=== PATIENT | female | born 1975 | race Caucasian/White ===

== ENCOUNTER 2019-12-14 16:44 | Inpatient (IN) | payer MEDICAID ==
[~2019-12-14] VITALS: Ht 154.9 cm; Wt 131.8 kg
[~2019-12-14 16:44] MED LIST: ALBU2.5V13 NEB; DOCU283E2 RC; FOLI0.4T14 PO; HYDR-4383 PO; LORA-268 PO; MYC15CR TOP; ONDA4AMP IVP; OXCA300T16 PO; PANT-47 PO; POLY119P2 PO; PROP10TA10 PO; QUET300T19 PO; RIFA550T PO; SCOP1PAT11 TOP; SODIUM CHLORIDE IV; VANCOMYCIN IV
[2019-12-14 19:23] LABS: BASOPHILS % (AUTO) 0.4 % (0-1); EOSINOPHILS # (AUTO) 0.1 X10'3 (0-0.9); EOSINOPHILS % (AUTO) 1.5 % (0-6); HEMOGLOBIN 8.2 g/dl (12.0-16.0); LYMPHOCYTES % (AUTO) 13.2 % (21-51); MEAN CORPUSCULAR HEMOGLOBIN 32.1 PG (27.0-31.0); MEAN CORPUSCULAR HGB CONC 32.8 g/dL (33.0-36.5); MEAN PLATELET VOLUME 7.7 FL (7.4-10.4); MONOCYTES # (AUTO) 0.6 X10'3 (0-0.9); MONOCYTES % (AUTO) 8.2 % (2-12); NEUTROPHILS % (AUTO) 76.7 % (42-75); PLATELET COUNT 158 X10'3 (140-440); RED BLOOD COUNT 2.55 X10'6 (4.20-5.60); RED CELL DISTRIBUTION WIDTH 17.6 % (11.5-14.5); WHITE BLOOD COUNT 7.9 X10'3 (4.5-11.0)
[2019-12-14 19:35] LABS: ALANINE AMINOTRANSFERASE 11 U/L (12-78); ALBUMIN 2.9 G/DL (3.4-5.0); ALKALINE PHOSPHATASE 100 IU/L (46-116); ANION GAP 9 (8-16); CHLORIDE 98 MMOL/L (99-107); CREATININE 1.81 MG/DL (0.40-0.90); POTASSIUM 3.6 MMOL/L (3.5-5.1); SODIUM 135 MMOL/L (135-145); TOTAL CARBON DIOXIDE 28.5 MMOL/L (24-32); eGFR 30 ML/MIN
[2019-12-14 19:37] LABS: ALBUMIN/GLOBULIN RATIO 0.4 (1.1-1.5); ASPARTATE AMINO TRANSFERASE 33 U/L (10-37); BILIRUBIN,TOTAL 1.5 MG/DL (0.1-1.0); BLOOD UREA NITROGEN 51 MG/DL (7-18); BUN/CREATININE RATIO 28.2 (6.6-38.0); CALCIUM 9.1 MG/DL (8.5-10.1); GLUCOSE 102 MG/DL (70-104); TOTAL PROTEIN 9.6 G/DL (6.4-8.2)
[2019-12-14] MEDS ORDERED: potassium Cl 20 mEq SR tablet PO PRN ×2 (20:55)
[2019-12-14] MEDS ORDERED: acetaminophen 325mg tablet PO PRN (20:55)
[2019-12-14] MEDS ORDERED: potassium CL 10mEq/100ml bag 100 ML IV PRN ×2 (20:55)
[2019-12-14] MEDS ORDERED: magnesium 4gm in 100ml NS 100 ML IV PRN (20:55)
[2019-12-14] MEDS ORDERED: ipratropium/albuterol 3ml nebule NEB PRN (20:55)
[2019-12-14] MEDS ORDERED: mag hydrox/Alum hydrox/simeth 30ml oral suspension PO PRN (20:55)
[2019-12-14] MEDS ORDERED: magnesium 2GM in 50ml NS 50 ML IV PRN (20:55)
[2019-12-14] MEDS ORDERED: docusate sod 100mg capsule PO PRN (20:55)
[2019-12-14 21:09] LABS: PARTIAL THROMBOPLASTIN TIME 34 SECONDS (22-32)
--- NOTE | 2019-12-14 22:16 | NUR ---
Patient in room ED 9. I have received report from Juana VIDAL and had the opportunity to ask questions and assume patient care.
[2019-12-14 22:25] VITALS: BP 113/44
--- NOTE | 2019-12-14 22:25 | NUR ---
Patient arrived from ER. Two RN skin checked preformed. Vital signs obtained- 113/44 --102 HR-- 91% on 2L of O2-- 20 RR. Patient alert and oriented. Will continue to monitor closely.
[2019-12-14] MEDS: ondansetron/PF 4mg/2ml inj IV PRN (22:42)
[2019-12-15] VITALS (10 sets, daily range): BP systolic 93–138; BP diastolic 36–99
[2019-12-15] MEDS ORDERED: temazepam 15mg capsule PO PRN (00:05)
[2019-12-15] MEDS ORDERED: proMETHazine 25mg rectal suppository RC PRN (00:10)
[2019-12-15] MEDS: proMETHazine 25mg tablet PO PRN ×3 (00:44→22:19)
[2019-12-15] MEDS ORDERED: LORazepam 0.5 MG tablet PO PRN (04:40)
[2019-12-15] MEDS ORDERED: ipratropium/albuterol 3ml nebule NEB PRN (04:40)
[2019-12-15] MEDS: levoFLOXACIN-Levaquin 500mg/D5 100 ML IV SCH (05:03)
[2019-12-15 05:30] LABS: BASOPHILS % (AUTO) 0.7 % (0-1); EOSINOPHILS # (AUTO) 0.1 X10'3 (0-0.9); EOSINOPHILS % (AUTO) 1.4 % (0-6); HEMATOCRIT 24.7 % (35.0-45.0); HEMOGLOBIN 8.2 g/dl (12.0-16.0); LYMPHOCYTES # (AUTO) 1.3 X10'3 (1.1-4.8); MEAN CORPUSCULAR HEMOGLOBIN 32.7 PG (27.0-31.0); MEAN PLATELET VOLUME 7.7 FL (7.4-10.4); MONOCYTES # (AUTO) 0.8 X10'3 (0-0.9); MONOCYTES % (AUTO) 10.2 % (2-12); NEUTROPHILS # (AUTO) 5.1 X10'3 (1.8-7.7); NEUTROPHILS % (AUTO) 69.7 % (42-75); PLATELET COUNT 149 X10'3 (140-440); RED CELL DISTRIBUTION WIDTH 16.9 % (11.5-14.5); WHITE BLOOD COUNT 7.4 X10'3 (4.5-11.0)
[2019-12-15 05:57] LABS: ALANINE AMINOTRANSFERASE 13 U/L (12-78); ALBUMIN 2.9 G/DL (3.4-5.0); ALKALINE PHOSPHATASE 79 IU/L (46-116); ANION GAP 8 (8-16); CHLORIDE 98 MMOL/L (99-107); CREATININE 1.91 MG/DL (0.40-0.90); MAGNESIUM 1.9 MG/DL (1.5-2.4); POTASSIUM 3.5 MMOL/L (3.5-5.1); SODIUM 135 MMOL/L (135-145); eGFR 28 ML/MIN
[2019-12-15 06:12] LABS: ALBUMIN/GLOBULIN RATIO 0.4 (1.1-1.5); ASPARTATE AMINO TRANSFERASE 32 U/L (10-37); BILIRUBIN,TOTAL 1.5 MG/DL (0.1-1.0); BLOOD UREA NITROGEN 51 MG/DL (7-18); BUN/CREATININE RATIO 26.7 (6.6-38.0); CALCIUM 8.9 MG/DL (8.5-10.1); GLUCOSE 95 MG/DL (70-104); TOTAL PROTEIN 9.5 G/DL (6.4-8.2)
--- NOTE | 2019-12-15 06:15 | NUR ---
Patient in room PCU 3012. I have received report from Denice VIDAL and had the opportunity to ask questions and assume patient care. Patient awake on report and in no distress.
--- NOTE | 2019-12-15 06:17 | NUR ---
Problems reprioritized. Patient report given, questions answered & plan of care reviewed with Anya VIDAL and Raj VIDAL.
--- NOTE | 2019-12-15 06:18 | NUR ---
Patient in room PCU 3012. I have received report from Denice VIDAL and had the opportunity to ask questions and assume patient care.
[2019-12-15] MEDS: K and/or MAG REPLACEMENT MC SCH ×2 (08:00→20:00)
--- NOTE | 2019-12-15 08:40 | NUR ---
PAGER ID: [phone] MESSAGE: [id number] La Cox: Pt is complaining of back pain, no prn pain meds ordered, patient states she was taking norco at [facility]. thanks shayna [phone]
[2019-12-15] MEDS: propranolol 10mg tablet PO SCH ×2 (08:47→20:00)
[2019-12-15] MEDS: rifaximin 550mg tablet PO SCH ×2 (08:47→20:23)
[2019-12-15] MEDS: pantoprazole 40mg Tablet.DR PO SCH (08:49)
[2019-12-15] MEDS: oxcarbazepine 150mg tablet PO SCH (08:49)
[2019-12-15] MEDS: folic acid 1mg tablet PO SCH (08:50)
[2019-12-15] MEDS: ondansetron/PF 4mg/2ml inj IV PRN ×2 (08:56→15:05)
[2019-12-15] MEDS ORDERED: tPA-cathflo 2mg/2ml IV flush 4 MG in normal saline 100ml IV soln 50 ML ICATH ONE (10:35)
--- NOTE | 2019-12-15 10:48 | NUR ---
Dr. Pichardo Paged regarding IR unable to chest tube at bedside. Re: aL James Rm. [id number] IR unable to insert chest tube at bedside. Raj VIDAL, [phone]
[2019-12-15] MEDS: HYDROcodone/acetaminophen 10/325mg tab PO PRN ×2 (12:15→20:29)
--- NOTE | 2019-12-15 13:24 | NUR ---
Paged RT for request on PRN breathing treatment.
--- NOTE | 2019-12-15 13:38 | NUR ---
PAGER ID: [phone] MESSAGE: [id number] La James: Pt is complaining that she did not receive her seroquel last night and has her very anxious, 0.5mg ativan prn was given but not effective, please advise. thanks shayna [phone]
--- NOTE | 2019-12-15 15:50 | NUR ---
Paged Dr. Pichardo regarding patient diet Re Jennifer James RM [id number] Patient post-thoro with 20 ccs out. No orders for diet, can we get a diet ordered? Raj VIDAL, [id number]
--- NOTE | 2019-12-15 17:56 | NUR ---
Orientee documentation: I have reviewed and agree with all interventions, assessments performed and documented by Raj VIDAL.
--- NOTE | 2019-12-15 18:29 | NUR ---
Problems reprioritized. Patient report given, questions answered & plan of care reviewed with Antoinette VIDAL.
--- NOTE | 2019-12-15 18:30 | NUR ---
Patient in room PCU 3012. I have received report from Anya VIDAL and had the opportunity to ask questions and assume patient care.
[2019-12-15] MEDS: quetiapine 100mg tablet PO SCH (20:23)
[2019-12-15] MEDS: lactobacillus rhamnosus 10,000 MMU CELLS/CAPSULE PO SCH (20:25)
[2019-12-16 02:00] VITALS: BP 96/41
[2019-12-16 05:56] LABS: ALANINE AMINOTRANSFERASE 9 U/L (12-78); ALBUMIN 2.7 G/DL (3.4-5.0); ALBUMIN/GLOBULIN RATIO 0.4 (1.1-1.5); ALKALINE PHOSPHATASE 46 IU/L (46-116); ANION GAP 9 (8-16); ASPARTATE AMINO TRANSFERASE 34 U/L (10-37); BILIRUBIN,TOTAL 1.7 MG/DL (0.1-1.0); BLOOD UREA NITROGEN 57 MG/DL (7-18); BUN/CREATININE RATIO 25.1 (6.6-38.0); CHLORIDE 98 MMOL/L (99-107); CREATININE 2.27 MG/DL (0.40-0.90); MAGNESIUM 1.9 MG/DL (1.5-2.4); POTASSIUM 4.3 MMOL/L (3.5-5.1); SODIUM 134 MMOL/L (135-145); TOTAL CARBON DIOXIDE 26.8 MMOL/L (24-32); TOTAL PROTEIN 9.1 G/DL (6.4-8.2); eGFR 23 ML/MIN
[2019-12-16 06:00] VITALS: BP 99/43
[2019-12-16 06:04] LABS: GLUCOSE 96 MG/DL (70-104)
--- NOTE | 2019-12-16 06:05 | NUR ---
Problems reprioritized. Patient report given, questions answered & plan of care reviewed with Anya VIDAL.
--- NOTE | 2019-12-16 06:32 | NUR ---
Patient in room PCU 3012. I have received report from Lizzy VIDAL and had the opportunity to ask questions and assume patient care.
--- NOTE | 2019-12-16 06:47 | NUR ---
Patient in room PCU 3012. I have received report from Antoinette VIDAL and had the opportunity to ask questions and assume patient care.
[2019-12-16] MEDS: K and/or MAG REPLACEMENT MC SCH ×2 (08:00→20:00)
[2019-12-16] MEDS: oxcarbazepine 150mg tablet PO SCH (08:53)
[2019-12-16] MEDS: folic acid 1mg tablet PO SCH (08:53)
[2019-12-16] MEDS: pantoprazole 40mg Tablet.DR PO SCH (08:54)
[2019-12-16] MEDS: propranolol 10mg tablet PO SCH ×2 (08:54→20:00)
[2019-12-16] MEDS: HYDROcodone/acetaminophen 10/325mg tab PO PRN ×3 (08:54→20:45)
[2019-12-16] MEDS: levoFLOXACIN-Levaquin 500mg/D5 100 ML IV SCH (08:55)
[2019-12-16] MEDS: lactobacillus rhamnosus 10,000 MMU CELLS/CAPSULE PO SCH ×2 (08:55→20:45)
[2019-12-16 09:07] LABS: BASOPHILS % (AUTO) 0.3 % (0-1); EOSINOPHILS # (AUTO) 0.1 X10'3 (0-0.9); EOSINOPHILS % (AUTO) 0.8 % (0-6); HEMATOCRIT 25.3 % (35.0-45.0); HEMOGLOBIN 8.3 g/dl (12.0-16.0); LYMPHOCYTES # (AUTO) 1.4 X10'3 (1.1-4.8); LYMPHOCYTES % (AUTO) 20.5 % (21-51); MEAN CORPUSCULAR HEMOGLOBIN 32.8 PG (27.0-31.0); MEAN CORPUSCULAR HGB CONC 32.8 g/dL (33.0-36.5); MEAN CORPUSCULAR VOLUME 99.9 FL (78-98); MEAN PLATELET VOLUME 7.8 FL (7.4-10.4); MONOCYTES # (AUTO) 1.1 X10'3 (0-0.9); NEUTROPHILS # (AUTO) 4.5 X10'3 (1.8-7.7); NEUTROPHILS % (AUTO) 63.4 % (42-75); PLATELET COUNT 128 X10'3 (140-440); RED BLOOD COUNT 2.54 X10'6 (4.20-5.60); RED CELL DISTRIBUTION WIDTH 17.6 % (11.5-14.5); WHITE BLOOD COUNT 7.1 X10'3 (4.5-11.0)
[2019-12-16] MEDS: rifaximin 550mg tablet PO SCH ×2 (10:38→20:45)
[2019-12-16 11:00] VITALS: BP 92/47
[2019-12-16] MEDS: proMETHazine 25mg tablet PO PRN (13:44)
[2019-12-16 15:00] VITALS: BP 98/35
--- NOTE | 2019-12-16 17:46 | NUR ---
Orientee documentation: I have reviewed and agree with all interventions, assessments performed and documented by Joao VIDAL.
[2019-12-16 18:00] VITALS: BP 94/41
--- NOTE | 2019-12-16 18:11 | NUR ---
Problems reprioritized. Patient report given, questions answered & plan of care reviewed with Antoinette VIDAL.
[2019-12-16] MEDS: quetiapine 100mg tablet PO SCH (20:46)
--- NOTE | 2019-12-16 21:04 | NUR ---
promotional table spacer PAGER ID: [phone] MESSAGE: La Jacob [id number] admitted with pleural effusion, pt BP is 88/39 thank you julian VIDAL [phone]
--- NOTE | 2019-12-16 21:08 | NUR ---
pt BP 88/39, 250 nursing bolus administered, BP meds held
[2019-12-16 22:00] VITALS: BP 92/42
[2019-12-17 03:00] VITALS: BP 86/38
--- NOTE | 2019-12-17 04:29 | NUR ---
PAGER ID: [phone] MESSAGE: La Jacob [id number] admitted with pleural effusion, pt BP is low 86/38 thank you julian VIDAL [phone]
--- NOTE | 2019-12-17 04:45 | NUR ---
per MD recheck pt BP in one hour and if still low to administer 250 bolus, will continue to monitor pt closely
[2019-12-17] MEDS: HYDROcodone/acetaminophen 10/325mg tab PO PRN ×4 (05:14→20:48)
--- NOTE | 2019-12-17 05:55 | NUR ---
pt BP 91/40, 250ml bolus started, will continue to monitor pt closely
[2019-12-17 06:33] LABS: BASOPHILS % (AUTO) 0.5 % (0-1); EOSINOPHILS % (AUTO) 0.7 % (0-6); HEMATOCRIT 24.3 % (35.0-45.0); HEMOGLOBIN 7.8 g/dl (12.0-16.0); LYMPHOCYTES # (AUTO) 1.1 X10'3 (1.1-4.8); LYMPHOCYTES % (AUTO) 17.6 % (21-51); MEAN CORPUSCULAR HEMOGLOBIN 31.9 PG (27.0-31.0); MEAN CORPUSCULAR HGB CONC 32.1 g/dL (33.0-36.5); MEAN CORPUSCULAR VOLUME 99.6 FL (78-98); MEAN PLATELET VOLUME 8.1 FL (7.4-10.4); MONOCYTES # (AUTO) 0.7 X10'3 (0-0.9); MONOCYTES % (AUTO) 10.3 % (2-12); NEUTROPHILS # (AUTO) 4.6 X10'3 (1.8-7.7); NEUTROPHILS % (AUTO) 70.9 % (42-75); PLATELET COUNT 138 X10'3 (140-440); RED BLOOD COUNT 2.44 X10'6 (4.20-5.60); RED CELL DISTRIBUTION WIDTH 17.3 % (11.5-14.5); WHITE BLOOD COUNT 6.5 X10'3 (4.5-11.0)
--- NOTE | 2019-12-17 06:43 | NUR ---
Problems reprioritized. Patient report given, questions answered & plan of care reviewed with Smita VIDAL.
[2019-12-17 06:55] LABS: ALANINE AMINOTRANSFERASE 12 U/L (12-78); ALBUMIN 2.7 G/DL (3.4-5.0); ALKALINE PHOSPHATASE 46 IU/L (46-116); ANION GAP 9 (8-16); CALCIUM 8.9 MG/DL (8.5-10.1); CHLORIDE 97 MMOL/L (99-107); CREATININE 2.98 MG/DL (0.40-0.90); POTASSIUM 4.4 MMOL/L (3.5-5.1); SODIUM 132 MMOL/L (135-145); TOTAL CARBON DIOXIDE 26.2 MMOL/L (24-32); eGFR 17 ML/MIN
[2019-12-17 06:58] LABS: ALBUMIN/GLOBULIN RATIO 0.4 (1.1-1.5); ASPARTATE AMINO TRANSFERASE 37 U/L (10-37); BILIRUBIN,TOTAL 1.4 MG/DL (0.1-1.0); BLOOD UREA NITROGEN 64 MG/DL (7-18); BUN/CREATININE RATIO 21.5 (6.6-38.0); GLUCOSE 99 MG/DL (70-104); TOTAL PROTEIN 9.2 G/DL (6.4-8.2)
[2019-12-17 07:00] VITALS: BP 103/69
[2019-12-17] MEDS: pantoprazole 40mg Tablet.DR PO SCH (08:39)
[2019-12-17] MEDS: rifaximin 550mg tablet PO SCH ×2 (08:40→20:47)
[2019-12-17] MEDS: K and/or MAG REPLACEMENT MC SCH ×2 (08:40→20:00)
[2019-12-17] MEDS: lactobacillus rhamnosus 10,000 MMU CELLS/CAPSULE PO SCH ×2 (08:40→20:47)
[2019-12-17] MEDS: folic acid 1mg tablet PO SCH (08:40)
[2019-12-17] MEDS: oxcarbazepine 150mg tablet PO SCH (08:40)
[2019-12-17] MEDS: ondansetron/PF 4mg/2ml inj IV PRN ×2 (08:45→20:48)
[2019-12-17 11:00] VITALS: BP 101/32
[2019-12-17] MEDS: levoFLOXACIN 250mg tablet PO SCH (11:13)
[2019-12-17] MEDS: normal saline 1000ml 1,000 ML IV SCH (11:14)
[2019-12-17] MEDS: proMETHazine 25mg tablet PO PRN (16:45)
[2019-12-17 17:00] VITALS: BP 91/43
[2019-12-17 18:00] VITALS: BP 105/34
--- NOTE | 2019-12-17 18:15 | NUR ---
Patient in room PCU 3012. I have received report from and had the opportunity to ask questions and assume patient care.
--- NOTE | 2019-12-17 18:43 | NUR ---
Problems reprioritized. Patient report given, questions answered & plan of care reviewed with MARCY Aiken. Patient stable at transfer of care.
[2019-12-17] MEDS: quetiapine 100mg tablet PO SCH (20:47)
[2019-12-17 22:00] VITALS: BP 94/50
[2019-12-18] MEDS: normal saline 1000ml 1,000 ML IV SCH ×2 (00:25→12:38)
[2019-12-18 00:55] VITALS: BP 105/43
[2019-12-18] MEDS: HYDROcodone/acetaminophen 10/325mg tab PO PRN ×2 (00:56→07:31)
[2019-12-18] MEDS: proMETHazine 25mg tablet PO PRN ×2 (00:56→07:37)
[2019-12-18 02:00] VITALS: BP 88/47
[2019-12-18 02:25] VITALS: BP 95/52
[2019-12-18 06:00] VITALS: BP 104/43
--- NOTE | 2019-12-18 06:00 | NUR ---
Patient in room PCU 3012. I have received report from DEVEN and had the opportunity to ask questions and assume patient care.
--- NOTE | 2019-12-18 06:18 | NUR ---
Problems reprioritized. Patient report given, questions answered & plan of care reviewed with MARCY Diamond.
--- NOTE | 2019-12-18 06:42 | NUR ---
Patient in room PCU 3012. I have received report from SKYLA and had the opportunity to ask questions and assume patient care.
[2019-12-18] MEDS: K and/or MAG REPLACEMENT MC SCH (07:20)
[2019-12-18] MEDS: rifaximin 550mg tablet PO SCH (07:30)
[2019-12-18] MEDS: pantoprazole 40mg Tablet.DR PO SCH (07:30)
[2019-12-18] MEDS: folic acid 1mg tablet PO SCH (07:31)
[2019-12-18] MEDS: lactobacillus rhamnosus 10,000 MMU CELLS/CAPSULE PO SCH (07:31)
[2019-12-18] MEDS: oxcarbazepine 150mg tablet PO SCH (07:31)
[2019-12-18 09:50] LABS: BASOPHILS % (AUTO) 0.1 % (0-1); EOSINOPHILS % (AUTO) 0.7 % (0-6); HEMATOCRIT 24.2 % (35.0-45.0); HEMOGLOBIN 7.9 g/dl (12.0-16.0); MEAN CORPUSCULAR HEMOGLOBIN 32.2 PG (27.0-31.0); MEAN CORPUSCULAR HGB CONC 32.6 g/dL (33.0-36.5); MEAN CORPUSCULAR VOLUME 98.7 FL (78-98); MONOCYTES # (AUTO) 0.8 X10'3 (0-0.9); MONOCYTES % (AUTO) 11.2 % (2-12); NEUTROPHILS # (AUTO) 5.1 X10'3 (1.8-7.7); PLATELET COUNT 137 X10'3 (140-440); RED BLOOD COUNT 2.46 X10'6 (4.20-5.60); RED CELL DISTRIBUTION WIDTH 16.7 % (11.5-14.5); WHITE BLOOD COUNT 6.9 X10'3 (4.5-11.0)
[2019-12-18 10:10] LABS: ALANINE AMINOTRANSFERASE 18 U/L (12-78); ALBUMIN 2.8 G/DL (3.4-5.0); ALKALINE PHOSPHATASE 46 IU/L (46-116); ANION GAP 12 (8-16); CALCIUM 8.7 MG/DL (8.5-10.1); CHLORIDE 96 MMOL/L (99-107); MAGNESIUM 1.9 MG/DL (1.5-2.4); POTASSIUM 4.5 MMOL/L (3.5-5.1); SODIUM 132 MMOL/L (135-145); TOTAL CARBON DIOXIDE 23.8 MMOL/L (24-32); eGFR 13 ML/MIN
[2019-12-18 10:11] LABS: ALBUMIN/GLOBULIN RATIO 0.4 (1.1-1.5); ASPARTATE AMINO TRANSFERASE 36 U/L (10-37); BILIRUBIN,TOTAL 1.4 MG/DL (0.1-1.0); BLOOD UREA NITROGEN 69 MG/DL (7-18); BUN/CREATININE RATIO 18.6 (6.6-38.0); GLUCOSE 101 MG/DL (70-104); TOTAL PROTEIN 9.5 G/DL (6.4-8.2)
[2019-12-18] MEDS: levoFLOXACIN 250mg tablet PO SCH (11:29)
--- NOTE | 2019-12-18 13:25 | NUR ---
Called report into Bailey at [facility].
--- NOTE | 2019-12-18 14:17 | NUR ---
Rao oconnell came to brick picker patient on gurney alert and oriented headed to [facility] report called to Bailey
== END 2019-12-18 14:00 | DRG 133 ==
LOC: ER 16:44 → ED HOLD 20:55 → PCU 3S 22:26
PROVIDERS: ADMIT Family Medicine; ATTEND Family Medicine
PROC: 0W993ZZ Drainage of Right Pleural Cavity, Percutaneous Approach (ICD-10-PCS; principal; 2019-12-15)
DX: J96.21 Acute and chronic respiratory failure with hypoxia (principal); J90 Pleural effusion, not elsewhere classified; J44.9 Chronic obstructive pulmonary disease, unspecified; N17.9 Acute kidney failure, unspecified; N18.3 Chronic kidney disease, stage 3 (moderate); D64.9 Anemia, unspecified; F31.9 Bipolar disorder, unspecified; E87.1 Hypo-osmolality and hyponatremia; K74.60 Unspecified cirrhosis of liver; B19.20 Unspecified viral hepatitis C without hepatic coma; E11.22 Type 2 diabetes mellitus with diabetic chronic kidney disease; G89.4 Chronic pain syndrome; E87.2 Acidosis; M46.26 Osteomyelitis of vertebra, lumbar region; M46.46 Discitis, unspecified, lumbar region; Z87.891 Personal history of nicotine dependence; Z86.14 Personal history of Methicillin resistant Staphylococcus aureus infection; Z99.2 Dependence on renal dialysis; Z99.81 Dependence on supplemental oxygen
CPT/HCPCS: 32555; 36415; 71045; 71250; 80053; 82948; 83605; 83735; 85025; 85610; 85730; 87070; 87075; 87081; 87102; 93005; 94640; 94760; 99285; G0378; J1956; J2405; J2997; J7030; Q0169

== ENCOUNTER 2019-12-20 10:03 | Inpatient (IN) | payer MEDICAID ==
[~2019-12-20] VITALS: Ht 154.9 cm; Wt 141.5 kg
[~2019-12-20 10:03] MED LIST changes: -DOCU283E2 RC; -POLY119P2 PO; -SCOP1PAT11 TOP; -SODIUM CHLORIDE IV
[2019-12-20 11:11] LABS: BASOPHILS % (AUTO) 0.3 % (0-1); EOSINOPHILS # (AUTO) 0.1 X10'3 (0-0.9); HEMATOCRIT 23.7 % (35.0-45.0); HEMOGLOBIN 7.8 g/dl (12.0-16.0); LYMPHOCYTES % (AUTO) 15.2 % (21-51); MEAN CORPUSCULAR HGB CONC 32.7 g/dL (33.0-36.5); MEAN CORPUSCULAR VOLUME 97.8 FL (78-98); MONOCYTES # (AUTO) 0.5 X10'3 (0-0.9); NEUTROPHILS # (AUTO) 4.8 X10'3 (1.8-7.7); NEUTROPHILS % (AUTO) 75.5 % (42-75); PLATELET COUNT 131 X10'3 (140-440); RED BLOOD COUNT 2.42 X10'6 (4.20-5.60); RED CELL DISTRIBUTION WIDTH 17.3 % (11.5-14.5); WHITE BLOOD COUNT 6.4 X10'3 (4.5-11.0)
[2019-12-20 11:21] LABS: ALANINE AMINOTRANSFERASE 16 U/L (12-78); ALKALINE PHOSPHATASE 47 IU/L (46-116); ANION GAP 12 (8-16); CALCIUM 8.9 MG/DL (8.5-10.1); CHLORIDE 95 MMOL/L (99-107); CREATININE 4.66 MG/DL (0.40-0.90); LACTIC SEPSIS 1.9 MMOL/L (0.4-2.0); POTASSIUM 5.1 MMOL/L (3.5-5.1); SODIUM 131 MMOL/L (135-145); TOTAL CARBON DIOXIDE 24.4 MMOL/L (24-32); eGFR 10 ML/MIN
[2019-12-20 11:22] LABS: ALBUMIN/GLOBULIN RATIO 0.4 (1.1-1.5); ASPARTATE AMINO TRANSFERASE 35 U/L (10-37); BILIRUBIN,TOTAL 1.6 MG/DL (0.1-1.0); BLOOD UREA NITROGEN 83 MG/DL (7-18); GLUCOSE 95 MG/DL (70-104); TOTAL PROTEIN 9.7 G/DL (6.4-8.2)
[2019-12-20 11:35] LABS: BUN/CREATININE RATIO 17.8 (6.6-38.0)
[2019-12-20] MEDS ORDERED: normal saline 1000ml 100 ML IV PRN (12:16)
[2019-12-20] MEDS ORDERED: normal saline 1000ml 1,000 ML IV PRN (12:16)
[2019-12-20] MEDS ORDERED: normal saline 1000ml 250 ML IV PRN (12:16)
[2019-12-20] MEDS ORDERED: albumin (human) 25% 100ml IV 100 ML IV PRN (12:20)
[2019-12-20] MEDS ORDERED: epoetin 20,000 units/ml inj IV ONE (12:20)
[2019-12-20] MEDS ORDERED: acetaminophen 325mg tablet PO PRN (12:20)
[2019-12-20] MEDS ORDERED: magnesium hydroxide 30ml (MOM) UD suspension PO PRN (12:20)
[2019-12-20] MEDS ORDERED: heparin 1,000 units/ml 10ml inj HE ONE ×2 (12:20→13:50)
[2019-12-20 12:24] LABS: CLARITY,URINE CLOUDY (Clear); COLOR,URINE AMBER (Yellow); GLUCOSE, URINE NEGATIVE (Neg); KETONES,URINE TRACE mg/dl (Neg); LEUKOCYTE ESTERASE ,URINE TRACE (Neg); NITRITES, URINE NEGATIVE (Neg); OCCULT BLOOD,URINE LARGE (Neg); PROTEIN,URINE 100 mg/dl (Neg); UROBILINOGEN,URINE 0.2 E.U/dL (0.2-1.0)
[2019-12-20 12:25] LABS: UA COLLECTION TYPE CLN CATCH MIDSTREAM
[2019-12-20 12:30] LABS: SQUAMOUS EPITHELIAL CELL,UR MANY /LPF (FEW)
[2019-12-20 12:31] LABS: RBC,URINE 20-50 /HPF (0-2); WBC,URINE 20-30 /HPF (0-4)
[2019-12-20 12:32] LABS: BACTERIA,URINE 2+ /HPF (Neg)
[2019-12-20 12:33] LABS: AMORPHOUS URATES 2+
[2019-12-20] MEDS ORDERED: LEVO500T89 PO (12:33)
[2019-12-20] MEDS ORDERED: POLY119P2 PO (12:33)
[2019-12-20] MEDS ORDERED: HYDR-4353 PO (12:33)
[2019-12-20] MEDS ORDERED: LACT1CAP26 PO (12:33)
[2019-12-20] MEDS ORDERED: ATR0.5NEB IH (12:33)
[2019-12-20] MEDS ORDERED: DOCU100C40 PO (12:33)
[2019-12-20] MEDS ORDERED: PROM25TA14 PO (12:33)
--- NOTE | 2019-12-20 14:09 | NUR ---
[facility] [phone]
[2019-12-20 14:30] LABS: AMYLASE 27 U/L (25-115); PHOSPHORUS 7.7 MG/DL (2.3-4.5)
[2019-12-20] MEDS ORDERED: VANCOMYCIN 1,500MG inj. 1,500 MG in normal saline 500ml IV soln 300 ML IV STA (14:51)
[2019-12-20 15:00] VITALS: BP 102/38
[2019-12-20 18:00] VITALS: BP 110/39
--- NOTE | 2019-12-20 18:00 | NUR ---
Problems reprioritized. Patient report given, questions answered & plan of care reviewed with [place] VIDAL.
[2019-12-20] MEDS: docusate sod 100mg capsule PO SCH (20:17)
[2019-12-20] MEDS: sennosides/docusate sodium tablet PO SCH (20:18)
[2019-12-20] MEDS: heparin, porcine 5000 units/ml vial SQ SCH (20:19)
[2019-12-20 22:00] VITALS: BP 108/46
[2019-12-20] MEDS ORDERED: ondansetron/PF 4mg/2ml inj IV PRN (23:05)
[2019-12-21] VITALS (21 sets, daily range): BP systolic 97–123; BP diastolic 36–57
--- NOTE | 2019-12-21 02:35 | NUR ---
Pt was bladder scanned (33 ml ) d/t inability to void in the shift. Notified May., CONTRACT RUNNER. No new order received.
[2019-12-21 06:00] LABS: BASOPHILS % (AUTO) 0.5 % (0-1); EOSINOPHILS # (AUTO) 0.1 X10'3 (0-0.9); EOSINOPHILS % (AUTO) 1.5 % (0-6); HEMATOCRIT 22.7 % (35.0-45.0); HEMOGLOBIN 7.5 g/dl (12.0-16.0); LYMPHOCYTES # (AUTO) 1.1 X10'3 (1.1-4.8); LYMPHOCYTES % (AUTO) 17.7 % (21-51); MEAN CORPUSCULAR HEMOGLOBIN 32.3 PG (27.0-31.0); MEAN CORPUSCULAR HGB CONC 33.1 g/dL (33.0-36.5); MEAN CORPUSCULAR VOLUME 97.7 FL (78-98); MONOCYTES # (AUTO) 0.9 X10'3 (0-0.9); MONOCYTES % (AUTO) 13.5 % (2-12); NEUTROPHILS # (AUTO) 4.3 X10'3 (1.8-7.7); NEUTROPHILS % (AUTO) 66.8 % (42-75); PLATELET COUNT 107 X10'3 (140-440); RED BLOOD COUNT 2.32 X10'6 (4.20-5.60); RED CELL DISTRIBUTION WIDTH 16.9 % (11.5-14.5); WHITE BLOOD COUNT 6.5 X10'3 (4.5-11.0)
--- NOTE | 2019-12-21 06:03 | NUR ---
Problems reprioritized. Patient report given, questions answered & plan of care reviewed with Sierra Palacios RN.
[2019-12-21 06:08] LABS: PARTIAL THROMBOPLASTIN TIME 43 SECONDS (22-32)
--- NOTE | 2019-12-21 06:15 | NUR ---
Patient in room PCU 3019I. I have received report from [place] VIDAL and had the opportunity to ask questions and assume patient care.
[2019-12-21 06:18] LABS: ALANINE AMINOTRANSFERASE 12 U/L (12-78); ALBUMIN 2.7 G/DL (3.4-5.0); ALBUMIN/GLOBULIN RATIO 0.4 (1.1-1.5); ALKALINE PHOSPHATASE 41 IU/L (46-116); ANION GAP 15 (8-16); ASPARTATE AMINO TRANSFERASE 33 U/L (10-37); BILIRUBIN,TOTAL 1.6 MG/DL (0.1-1.0); BLOOD UREA NITROGEN 86 MG/DL (7-18); BUN/CREATININE RATIO 17.4 (6.6-38.0); CALCIUM 8.7 MG/DL (8.5-10.1); CHLORIDE 95 MMOL/L (99-107); CREATININE 4.94 MG/DL (0.40-0.90); PHOSPHORUS 7.9 MG/DL (2.3-4.5); POTASSIUM 5.2 MMOL/L (3.5-5.1); SODIUM 130 MMOL/L (135-145); TOTAL CARBON DIOXIDE 19.9 MMOL/L (24-32); eGFR 9 ML/MIN
[2019-12-21 06:22] LABS: GLUCOSE 83 MG/DL (70-104)
[2019-12-21] MEDS: docusate sod 100mg capsule PO SCH ×2 (08:00→20:00)
--- NOTE | 2019-12-21 08:34 | NUR ---
Order for 24 hour urine initiated. However, patient had an episode of incontinence, was unable to collect urine at this time. Wick placed on patient to attempt further urine collection.
[2019-12-21] MEDS: pantoprazole 40mg Tablet.DR PO SCH (08:46)
[2019-12-21] MEDS: heparin, porcine 5000 units/ml vial SQ SCH ×2 (08:46→20:16)
[2019-12-21] MEDS ORDERED: LIDOcaine 2% 10ml TOPICAL JELLY (Urojet) TP ONE (09:10)
[2019-12-21] MEDS ORDERED: normal saline 1000ml 250 ML IV PRN (09:15)
[2019-12-21] MEDS ORDERED: normal saline 1000ml 100 ML IV PRN (09:15)
[2019-12-21] MEDS ORDERED: heparin 1,000 units/ml 10ml inj HE ONE ×2 (09:20→09:30)
[2019-12-21] MEDS ORDERED: epoetin 20,000 units/ml inj SQ ONE (09:30)
[2019-12-21] MEDS: levoTHYROXINE 75mcg tablet PO SCH (09:35)
[2019-12-21] MEDS ORDERED: LIDOcaine 1%/PF 5ML 10 MG/ML VIAL ONE (10:53)
[2019-12-21] MEDS ORDERED: heparin 1,000unit/ml 10ml vial 10 ML ONE (10:53)
[2019-12-21] MEDS ORDERED: fentaNYL/PF 50MCG/1 ML 2ML syringe ONE ×2 (10:54→11:19)
[2019-12-21] MEDS ORDERED: ONDANSETRON HCL IVP PRN (11:10)
[2019-12-21] MEDS ORDERED: proMETHazine 25mg tablet PO PRN (11:10)
[2019-12-21] MEDS ORDERED: ipratropium 0.5 MG/2.5ML nebule IH PRN (11:10)
[2019-12-21] MEDS ORDERED: polyethylene glycol 3350 17gm powd pack PO PRN (11:10)
[2019-12-21] MEDS ORDERED: HYDROcodone/acetaminophen 5mg/325mg tablet PO PRN (11:10)
--- NOTE | 2019-12-21 11:10 | NUR ---
Dr. Hilario ordered MRI of head to follow up on CT head findings. Attempted to call MRI, no answer. Pt going to angio for TDC placement
[2019-12-21] MEDS ORDERED: diphenhydrAMINE 50 mg/ml inj ONE (11:18)
[2019-12-21] MEDS: levoFLOXACIN 250mg tablet PO SCH (11:26)
--- NOTE | 2019-12-21 12:11 | NUR ---
Patient returned from angio after TDC placement, sleepy but opens eyes to voice. VS stable at this time.
--- NOTE | 2019-12-21 12:30 | NUR ---
hunting sales associate informed that patient has TDC and is back in room, states that they will be able to do dialysis around 1530 today. Also discussed with RN that patient is to receive 3 units of PRBC during dialysis as ordered by Dr. Hilario. This order was confirmed with him via phone today to give all 3 units.
--- NOTE | 2019-12-21 12:30 | NUR ---
Attempted to follow up with MRI for timing of MRI head. Spoke with thermal technician. Reviewed screening form and patient information. thermal technician states that patient is slightly over the weight limit and may not fit in MRI at this time. thermal technician also states that she has 2 other patients ahead of patient and may be able to take patient around 1500. Informed MRI that patient is going to receive dialysis this afternoon around 1530 so may need to do MRI before dialysis. thermal technician states that they may possibly be able to do MRI after dialysis, however with her dialysis session lasting about 2-3 hours may not be able to perform MRI until tomorrow.
[2019-12-21 12:39] LABS: SODIUM,URINE RANDOM < 15 MEQ/L
--- NOTE | 2019-12-21 15:00 | NUR ---
Spoke with daughter on the phone who gave consent for blood transfusion as patient is not currently consentable, is sleepy and slightly confused. Discussed with daughter and she indicated understanding, consent confirmed with another RN Esther VIDAL.
--- NOTE | 2019-12-21 16:06 | NUR ---
Nutrition consult: Pt admit w/ ALOC, hypotension, and unable to go to HD from [facility] so transferred here per MD. Hx ESRD on HD, meth abuse, recent endocarditis treatment, and cardiac vegetation per MD note. Pt s/p TDC for HD AOx1 refusing initial renal meal this AM. K 5.2, Phos 7.9, and Creatinine 4.94 on admit. LBM 12/17 receiving routine colace and senna w/ colace held for diarrhea per EMR. Will monitor for mentation status and ONS needs following HD this admit; ONS not appropriate currently w/ ALOC and refusal of meals. Addendum: 12/21/19 at [address] Amended: Links added.
[2019-12-21] MEDS: VANCOMYCIN 1,500MG inj. 1,500 MG in normal saline 500ml IV soln 300 ML IV SCH (16:47)
--- NOTE | 2019-12-21 17:45 | NUR ---
Spoke with Dr. Hilario regarding TDC and IV access. Orders given to pull PIV and leave TDC. Have cardiac rn access TDC for IV abx and medications, call them to arrange time of medication administration, no KVO for patient
--- NOTE | 2019-12-21 18:30 | NUR ---
Problems reprioritized. Patient report given, questions answered & plan of care reviewed with Antoinette VIDAL.
--- NOTE | 2019-12-21 18:30 | NUR ---
Patient in room PCU 3017. I have received report from Sierra Reeves RN and had the opportunity to ask questions and assume patient care.
[2019-12-21] MEDS: propranolol 10mg tablet PO SCH (20:00)
[2019-12-21] MEDS: lactobacillus rhamnosus 10,000 MMU CELLS/CAPSULE PO SCH (20:00)
[2019-12-21] MEDS: rifaximin 550mg tablet PO SCH (20:00)
[2019-12-21] MEDS ORDERED: docusate sod 100mg capsule PO SCH (21:00)
[2019-12-21] MEDS: sennosides/docusate sodium tablet PO SCH (21:00)
[2019-12-21] MEDS: quetiapine 100mg tablet PO SCH (21:45)
--- NOTE | 2019-12-21 21:45 | NUR ---
pt was hard to arouse earlier and had thick sputum, held nonessential medication due to potential of aspirating. rechecked pt BP, was low so held propranlol, will continue to monitor pt
[2019-12-21 22:30] LABS: HEMOGLOBIN 10.4 g/dl (12.0-16.0); MEAN CORPUSCULAR HEMOGLOBIN 31.6 PG (27.0-31.0); MEAN CORPUSCULAR HGB CONC 33.7 g/dL (33.0-36.5); MEAN CORPUSCULAR VOLUME 93.9 FL (78-98); PLATELET COUNT 109 X10'3 (140-440); RED CELL DISTRIBUTION WIDTH 17.4 % (11.5-14.5); WHITE BLOOD COUNT 7.7 X10'3 (4.5-11.0)
[2019-12-21] MEDS: albuterol 2.5 MG/3 ML nebule NEB PRN (23:46)
[2019-12-22 02:00] VITALS: BP 96/45
[2019-12-22 06:00] VITALS: BP 112/73
[2019-12-22 06:11] LABS: BASOPHILS % (AUTO) 0.2 % (0-1); EOSINOPHILS % (AUTO) 0.7 % (0-6); HEMATOCRIT 29.3 % (35.0-45.0); HEMOGLOBIN 9.9 g/dl (12.0-16.0); LYMPHOCYTES # (AUTO) 0.9 X10'3 (1.1-4.8); LYMPHOCYTES % (AUTO) 13.4 % (21-51); MEAN CORPUSCULAR HEMOGLOBIN 31.5 PG (27.0-31.0); MEAN CORPUSCULAR HGB CONC 33.6 g/dL (33.0-36.5); MEAN CORPUSCULAR VOLUME 93.8 FL (78-98); MEAN PLATELET VOLUME 7.7 FL (7.4-10.4); MONOCYTES # (AUTO) 0.5 X10'3 (0-0.9); MONOCYTES % (AUTO) 7.4 % (2-12); NEUTROPHILS # (AUTO) 5.4 X10'3 (1.8-7.7); NEUTROPHILS % (AUTO) 78.3 % (42-75); PLATELET COUNT 98 X10'3 (140-440); RED BLOOD COUNT 3.13 X10'6 (4.20-5.60); RED CELL DISTRIBUTION WIDTH 18.1 % (11.5-14.5)
[2019-12-22 06:17] LABS: PARTIAL THROMBOPLASTIN TIME 42 SECONDS (22-32)
--- NOTE | 2019-12-22 06:20 | NUR ---
Problems reprioritized. Patient report given, questions answered & plan of care reviewed with Anya VIDAL.
[2019-12-22 06:28] LABS: ALANINE AMINOTRANSFERASE 11 U/L (12-78); ALBUMIN 2.8 G/DL (3.4-5.0); ALBUMIN/GLOBULIN RATIO 0.5 (1.1-1.5); ALKALINE PHOSPHATASE 42 IU/L (46-116); ANION GAP 12 (8-16); ASPARTATE AMINO TRANSFERASE 27 U/L (10-37); BILIRUBIN,TOTAL 4.2 MG/DL (0.1-1.0); BLOOD UREA NITROGEN 57 MG/DL (7-18); BUN/CREATININE RATIO 15.2 (6.6-38.0); CALCIUM 8.5 MG/DL (8.5-10.1); CHLORIDE 97 MMOL/L (99-107); CREATININE 3.76 MG/DL (0.40-0.90); PHOSPHORUS 5.8 MG/DL (2.3-4.5); POTASSIUM 4.1 MMOL/L (3.5-5.1); SODIUM 133 MMOL/L (135-145); TOTAL CARBON DIOXIDE 24.2 MMOL/L (24-32); eGFR 13 ML/MIN
[2019-12-22 06:35] LABS: GLUCOSE 83 MG/DL (70-104)
--- NOTE | 2019-12-22 06:46 | NUR ---
Patient in room PCU 3017. I have received report from Antoinette VIDAL and had the opportunity to ask questions and assume patient care.
[2019-12-22 07:08] LABS: PLATELET ESTIMATE DECREASED
[2019-12-22 07:09] LABS: ANISOCYTOSIS 2+; POLYCHROMASIA 1+; ROULEAUX 2+; TARGET CELLS FEW
[2019-12-22] MEDS: levoFLOXACIN 250mg tablet PO SCH (07:22)
[2019-12-22] MEDS: lactobacillus rhamnosus 10,000 MMU CELLS/CAPSULE PO SCH ×2 (07:22→20:26)
[2019-12-22] MEDS: levoTHYROXINE 75mcg tablet PO SCH (07:22)
[2019-12-22] MEDS: oxcarbazepine 150mg tablet PO SCH (07:22)
[2019-12-22] MEDS: rifaximin 550mg tablet PO SCH ×2 (07:22→20:00)
[2019-12-22] MEDS: folic acid 1mg tablet PO SCH (07:22)
[2019-12-22] MEDS: propranolol 10mg tablet PO SCH ×2 (07:23→20:26)
[2019-12-22] MEDS: docusate sod 100mg capsule PO SCH ×2 (07:23→20:26)
[2019-12-22] MEDS: pantoprazole 40mg Tablet.DR PO SCH (07:23)
[2019-12-22] MEDS: heparin, porcine 5000 units/ml vial SQ SCH ×2 (07:26→20:00)
[2019-12-22] MEDS ORDERED: pantoprazole 40mg Tablet.DR PO SCH (08:00)
[2019-12-22 10:03] LABS: UREA NITROGEN 24HR,URINE 0.1 GM/24HR (7-20)
[2019-12-22 10:27] LABS: HBSAG SCREEN Negative (Negative)
[2019-12-22 11:00] VITALS: BP 98/60
--- NOTE | 2019-12-22 11:43 | NUR ---
Received orders for ativan 1mg x1 prn for claustrophobia per dr. cristina
[2019-12-22] MEDS ORDERED: LORazepam 2 mg/ml vial IV PRN (11:45)
[2019-12-22] MEDS: LORazepam 0.5 MG tablet PO PRN ×2 (12:11→20:26)
--- NOTE | 2019-12-22 12:15 | NUR ---
Pt refuses to have mri, states she is claustrophobic and will barely fit in machine, aware
[2019-12-22] MEDS: HYDROcodone/acetaminophen 10/325mg tab PO PRN ×2 (14:06→20:28)
[2019-12-22 15:00] VITALS: BP 90/54
[2019-12-22] MEDS: VANCOMYCIN 1,500MG inj. 1,500 MG in normal saline 500ml IV soln 300 ML IV SCH (15:08)
[2019-12-22] MEDS ORDERED: heparin 1,000 units/ml 10ml inj HE ONE (15:10)
[2019-12-22] MEDS: albuterol 2.5 MG/3 ML nebule NEB PRN (15:39)
--- NOTE | 2019-12-22 16:04 | NUR ---
Spoke w/ daughter, Milena, at [phone] and daughter is requesting to be transferred to another hospital for a second opinion, spoke w/ dr. cristina and he is agreeable and states he is [place], will continue to monitor.
--- NOTE | 2019-12-22 18:18 | NUR ---
Problems reprioritized. Patient report given, questions answered & plan of care reviewed with Leonarda VIDAL.
[2019-12-22 19:00] VITALS: BP 103/62
[2019-12-22] MEDS: quetiapine 100mg tablet PO SCH (20:25)
[2019-12-22] MEDS: sennosides/docusate sodium tablet PO SCH (20:29)
[2019-12-22 23:00] VITALS: BP 87/59
[2019-12-23 03:00] VITALS: BP 106/47
[2019-12-23] MEDS ORDERED: heparin 1,000unit/ml 10ml vial 10 ML IV ONE (05:29)
[2019-12-23] MEDS ORDERED: epoetin 20,000 units/ml inj IV ONE (05:30)
[2019-12-23] MEDS ORDERED: heparin 1,000 units/ml 10ml inj IV ONE (05:30)
[2019-12-23] MEDS ORDERED: heparin 1,000 units/ml 10ml inj HE ONE (05:35)
[2019-12-23 06:00] VITALS: BP 118/50
[2019-12-23 06:13] LABS: PARTIAL THROMBOPLASTIN TIME 42 SECONDS (22-32)
[2019-12-23 06:18] LABS: BASOPHILS % (AUTO) 0.4 % (0-1); EOSINOPHILS # (AUTO) 0.1 X10'3 (0-0.9); EOSINOPHILS % (AUTO) 1.1 % (0-6); HEMATOCRIT 30.5 % (35.0-45.0); HEMOGLOBIN 10.2 g/dl (12.0-16.0); LYMPHOCYTES # (AUTO) 1.3 X10'3 (1.1-4.8); LYMPHOCYTES % (AUTO) 18.9 % (21-51); MEAN CORPUSCULAR HEMOGLOBIN 31.6 PG (27.0-31.0); MEAN CORPUSCULAR HGB CONC 33.3 g/dL (33.0-36.5); MEAN CORPUSCULAR VOLUME 94.7 FL (78-98); MONOCYTES # (AUTO) 0.7 X10'3 (0-0.9); MONOCYTES % (AUTO) 10.6 % (2-12); NEUTROPHILS # (AUTO) 4.8 X10'3 (1.8-7.7); PLATELET COUNT 92 X10'3 (140-440); RED BLOOD COUNT 3.22 X10'6 (4.20-5.60); RED CELL DISTRIBUTION WIDTH 18.1 % (11.5-14.5)
[2019-12-23 06:22] LABS: ALANINE AMINOTRANSFERASE 12 U/L (12-78); ALBUMIN 2.8 G/DL (3.4-5.0); ALKALINE PHOSPHATASE 49 IU/L (46-116); ANION GAP 13 (8-16); CHLORIDE 96 MMOL/L (99-107); CREATININE 4.54 MG/DL (0.40-0.90); POTASSIUM 4.7 MMOL/L (3.5-5.1); SODIUM 132 MMOL/L (135-145); TOTAL CARBON DIOXIDE 22.8 MMOL/L (24-32); eGFR 10 ML/MIN
--- NOTE | 2019-12-23 06:35 | NUR ---
Patient in room PCU 3017. I have received report from Leonarda VIDAL and had the opportunity to ask questions and assume patient care.
--- NOTE | 2019-12-23 06:35 | NUR ---
Patient in room PCU 3017. I have received report from Leonarda VIDAL and had the opportunity to ask questions and assume patient care.
[2019-12-23 06:36] LABS: ALBUMIN/GLOBULIN RATIO 0.4 (1.1-1.5); ASPARTATE AMINO TRANSFERASE 29 U/L (10-37); BILIRUBIN,TOTAL 2.4 MG/DL (0.1-1.0); BLOOD UREA NITROGEN 63 MG/DL (7-18); BUN/CREATININE RATIO 13.9 (6.6-38.0); CALCIUM 8.9 MG/DL (8.5-10.1); GLUCOSE 82 MG/DL (70-104); PHOSPHORUS 6.3 MG/DL (2.3-4.5); TOTAL PROTEIN 9.1 G/DL (6.4-8.2)
[2019-12-23] MEDS: heparin, porcine 5000 units/ml vial SQ SCH ×2 (08:00→19:44)
[2019-12-23] MEDS: oxcarbazepine 150mg tablet PO SCH (08:43)
[2019-12-23] MEDS: HYDROcodone/acetaminophen 10/325mg tab PO PRN (08:43)
[2019-12-23] MEDS: folic acid 1mg tablet PO SCH (08:43)
[2019-12-23] MEDS: levoTHYROXINE 75mcg tablet PO SCH (08:44)
[2019-12-23] MEDS: levoFLOXACIN 250mg tablet PO SCH (08:44)
[2019-12-23] MEDS: docusate sod 100mg capsule PO SCH ×2 (08:44→21:11)
[2019-12-23] MEDS: propranolol 10mg tablet PO SCH ×2 (08:44→21:12)
[2019-12-23] MEDS: pantoprazole 40mg Tablet.DR PO SCH (08:44)
[2019-12-23] MEDS: lactobacillus rhamnosus 10,000 MMU CELLS/CAPSULE PO SCH ×2 (08:45→21:12)
[2019-12-23] MEDS: LORazepam 0.5 MG tablet PO PRN (08:49)
[2019-12-23] MEDS: rifaximin 550mg tablet PO SCH ×2 (09:12→21:12)
[2019-12-23] MEDS ORDERED: ondansetron 4mg rapidly disintigrating tab PO PRN (09:25)
--- NOTE | 2019-12-23 09:25 | NUR ---
received orders for zofran SL q6h prn for nausea per Wilder FONTAINE
[2019-12-23 11:00] VITALS: BP 92/41
[2019-12-23 11:23] LABS: COMPLEMENT C3, SERUM 43 mg/dL (82-167); COMPLEMENT C4, SERUM 8 mg/dL (14-44)
[2019-12-23] MEDS: VANCOMYCIN 1,500MG inj. 1,500 MG in normal saline 500ml IV soln 300 ML IV SCH (12:15)
--- NOTE | 2019-12-23 12:15 | NUR ---
Patient is scheduled for vancomycin @ 1600 however patient only has TDC dialysis port access, orders for no PIV per dr. cristina. Dialysis nurse available to access during dialysis time at [phone], pharmacy states vancomycin trough will be invalid if vancomycin is given early, received orders to give vancomycin now per Wilder BEY and will have to reschedule vancomycin trough.
--- NOTE | 2019-12-23 18:05 | NUR ---
Daughter and Son is at bedside discussing plan of care w/ amira NON LICENSED NUCLEAR PLANT OPERATOR, amira explains patient's current health condition in length and how serious her heart condition is, daughter states her cousin's squash centre manager in [place] will be willing to give a second opinion, Amira machine i engraver states she will fax over transfer paperwork once daughter can find out where to send the paperwork, daughter will be in town and plans to come back tomorrow 12/24/19 with the information, will continue to monitor.
--- NOTE | 2019-12-23 18:38 | NUR ---
Problems reprioritized. Patient report given, questions answered & plan of care reviewed with Cesia VIDAL.
--- NOTE | 2019-12-23 18:38 | NUR ---
Orientee documentation: I have reviewed and agree with all interventions, assessments performed and documented by Joao VIDAL.
[2019-12-23 19:00] VITALS: BP 95/33
[2019-12-23] MEDS: albuterol 2.5 MG/3 ML nebule NEB PRN (20:56)
--- NOTE | 2019-12-23 20:57 | NUR ---
Patient lethargic. Called patient name out patient not able to reponse. Patient able to respond to light touch. Nurse sat patient up in high fowlers and attempted to assess swallowing ability patient able to use the straw and drank about 100ml and then started to cough. Nurse felt unsafe for patient to swollen medications. -colace -probiotic -inderal (low BP of 99/35) -xitaylor -Arnol -Serobonnyl Held tonight. Continue with current Plan of care.
[2019-12-23] MEDS: sennosides/docusate sodium tablet PO SCH (21:00)
[2019-12-23] MEDS ORDERED: quetiapine 100mg tablet PO SCH (21:00)
[2019-12-23] MEDS: quetiapine 100mg tablet PO SCH (21:00)
[2019-12-23 22:00] VITALS: BP 92/39
[2019-12-24] VITALS (7 sets, daily range): BP systolic 90–104; BP diastolic 36–54
[2019-12-24] MEDS: HYDROcodone/acetaminophen 10/325mg tab PO PRN ×3 (04:06→22:08)
--- NOTE | 2019-12-24 04:14 | NUR ---
Patient woke up this morning yelling. Saying she is in pain. Patient appears more awake than she was lastnight. Patient sat up in high fowlers, applesauce given and was able to swallow with out any difficulties. [place] given with applesauce, Patient swallow well. Patient currently awake with eyes open. Able to mummble her , and ask if her daughter Beatrice is in town.
[2019-12-24 06:14] LABS: BASOPHILS % (AUTO) 0.2 % (0-1); EOSINOPHILS # (AUTO) 0.1 X10'3 (0-0.9); EOSINOPHILS % (AUTO) 1.7 % (0-6); HEMATOCRIT 31.7 % (35.0-45.0); HEMOGLOBIN 10.5 g/dl (12.0-16.0); LYMPHOCYTES # (AUTO) 1.3 X10'3 (1.1-4.8); MEAN CORPUSCULAR HEMOGLOBIN 31.7 PG (27.0-31.0); MEAN CORPUSCULAR HGB CONC 33.2 g/dL (33.0-36.5); MEAN CORPUSCULAR VOLUME 95.6 FL (78-98); MONOCYTES # (AUTO) 0.7 X10'3 (0-0.9); MONOCYTES % (AUTO) 11.3 % (2-12); NEUTROPHILS # (AUTO) 4.2 X10'3 (1.8-7.7); NEUTROPHILS % (AUTO) 65.8 % (42-75); PLATELET COUNT 85 X10'3 (140-440); RED BLOOD COUNT 3.32 X10'6 (4.20-5.60); RED CELL DISTRIBUTION WIDTH 17.4 % (11.5-14.5); WHITE BLOOD COUNT 6.4 X10'3 (4.5-11.0)
[2019-12-24 06:20] LABS: PARTIAL THROMBOPLASTIN TIME 43 SECONDS (22-32)
[2019-12-24 06:25] LABS: ALANINE AMINOTRANSFERASE 9 U/L (12-78); ALBUMIN 2.7 G/DL (3.4-5.0); ALBUMIN/GLOBULIN RATIO 0.4 (1.1-1.5); ALKALINE PHOSPHATASE 41 IU/L (46-116); ANION GAP 12 (8-16); ASPARTATE AMINO TRANSFERASE 25 U/L (10-37); BILIRUBIN,TOTAL 2.2 MG/DL (0.1-1.0); BLOOD UREA NITROGEN 44 MG/DL (7-18); BUN/CREATININE RATIO 12.1 (6.6-38.0); CHLORIDE 98 MMOL/L (99-107); CREATININE 3.63 MG/DL (0.40-0.90); PHOSPHORUS 5.4 MG/DL (2.3-4.5); POTASSIUM 4.2 MMOL/L (3.5-5.1); SODIUM 132 MMOL/L (135-145); TOTAL CARBON DIOXIDE 22.4 MMOL/L (24-32); TOTAL PROTEIN 9.2 G/DL (6.4-8.2); eGFR 13 ML/MIN
[2019-12-24 06:27] LABS: GLUCOSE 82 MG/DL (70-104)
--- NOTE | 2019-12-24 06:29 | NUR ---
Problems reprioritized. Patient report given, questions answered & plan of care reviewed with Kate VIDAL.
[2019-12-24] MEDS: levoTHYROXINE 75mcg tablet PO SCH (07:00)
[2019-12-24] MEDS: pantoprazole 40mg Tablet.DR PO SCH (07:30)
--- NOTE | 2019-12-24 07:38 | NUR ---
Patient in room U 3017. I have received report from Cesia VIDAL and had the opportunity to ask questions and assume patient care. Patient yelling out, patient repositioned and made comfortable.
[2019-12-24] MEDS: lactobacillus rhamnosus 10,000 MMU CELLS/CAPSULE PO SCH ×2 (08:00→20:44)
[2019-12-24] MEDS: oxcarbazepine 150mg tablet PO SCH (08:00)
[2019-12-24] MEDS: rifaximin 550mg tablet PO SCH ×2 (08:00→20:44)
[2019-12-24] MEDS: propranolol 10mg tablet PO SCH ×2 (08:00→20:44)
[2019-12-24] MEDS: folic acid 1mg tablet PO SCH (08:00)
[2019-12-24] MEDS: docusate sod 100mg capsule PO SCH ×2 (08:00→20:44)
[2019-12-24] MEDS: heparin, porcine 5000 units/ml vial SQ SCH ×2 (08:00→20:00)
[2019-12-24] MEDS: levoFLOXACIN 250mg tablet PO SCH (08:00)
[2019-12-24 09:51] LABS: ALANINE AMINOTRANSFERASE 9 U/L (12-78); ALBUMIN 2.8 G/DL (3.4-5.0); ALBUMIN/GLOBULIN RATIO 0.4 (1.1-1.5); ALKALINE PHOSPHATASE 42 IU/L (46-116); ANION GAP 13 (8-16); ASPARTATE AMINO TRANSFERASE 22 U/L (10-37); BILIRUBIN,TOTAL 2.2 MG/DL (0.1-1.0); BLOOD UREA NITROGEN 45 MG/DL (7-18); BUN/CREATININE RATIO 11.5 (6.6-38.0); CALCIUM 8.5 MG/DL (8.5-10.1); CHLORIDE 97 MMOL/L (99-107); GLUCOSE 87 MG/DL (70-104); SODIUM 134 MMOL/L (135-145); TOTAL CARBON DIOXIDE 23.8 MMOL/L (24-32); TOTAL PROTEIN 9.2 G/DL (6.4-8.2); eGFR 12 ML/MIN
[2019-12-24] MEDS: acetaminophen 325mg tablet PO PRN ×2 (12:29→20:54)
--- NOTE | 2019-12-24 15:41 | NUR ---
DIALYSIS ACCESSED PATIENTS TDC TO GIVE VANCO PER MD'S ORDER.
[2019-12-24] MEDS ORDERED: heparin 1,000 units/ml 10ml inj HE ONE (15:50)
--- NOTE | 2019-12-24 16:16 | NUR ---
Tiffnay Hdz notified of patients blood pressure. BP taken several times, including manual. Highest BP 92-39 Map of 52, and lowest BP 80/40 MAP of 57. Pt. arousable and hasn't had any changes otherwise. No new orders at this time.
--- NOTE | 2019-12-24 18:37 | NUR ---
Problems reprioritized. Patient report given, questions answered & plan of care reviewed with Jojo VIDAL. Family at bedside and patient resting comfortably, not yelling out or in any evidence of pain.
--- NOTE | 2019-12-24 19:07 | NUR ---
Patient in room PCU 3017. I have received report from Kate VIDAL and had the opportunity to ask questions and assume patient care.
[2019-12-24] MEDS: sennosides/docusate sodium tablet PO SCH (20:44)
[2019-12-24] MEDS: quetiapine 100mg tablet PO SCH (20:44)
[2019-12-24] MEDS: LORazepam 0.5 MG tablet PO PRN (23:09)
[2019-12-25 02:00] VITALS: BP 93/37
--- NOTE | 2019-12-25 06:08 | NUR ---
Problems reprioritized. Patient report given, questions answered & plan of care reviewed with Kate VIDAL.
[2019-12-25 06:29] LABS: BASOPHILS % (AUTO) 0.5 % (0-1); EOSINOPHILS # (AUTO) 0.1 X10'3 (0-0.9); EOSINOPHILS % (AUTO) 2.4 % (0-6); HEMOGLOBIN 10.3 g/dl (12.0-16.0); LYMPHOCYTES # (AUTO) 1.4 X10'3 (1.1-4.8); LYMPHOCYTES % (AUTO) 23.1 % (21-51); MEAN CORPUSCULAR HEMOGLOBIN 31.9 PG (27.0-31.0); MEAN CORPUSCULAR HGB CONC 33.1 g/dL (33.0-36.5); MEAN CORPUSCULAR VOLUME 96.5 FL (78-98); MEAN PLATELET VOLUME 7.9 FL (7.4-10.4); MONOCYTES # (AUTO) 0.8 X10'3 (0-0.9); MONOCYTES % (AUTO) 13.4 % (2-12); NEUTROPHILS # (AUTO) 3.7 X10'3 (1.8-7.7); NEUTROPHILS % (AUTO) 60.6 % (42-75); PLATELET COUNT 79 X10'3 (140-440); RED BLOOD COUNT 3.21 X10'6 (4.20-5.60); WHITE BLOOD COUNT 6.2 X10'3 (4.5-11.0)
--- NOTE | 2019-12-25 06:43 | NUR ---
Patient in room PCU 3017. I have received report from Radha VIDAL and had the opportunity to ask questions and assume patient care.
[2019-12-25 06:44] LABS: PARTIAL THROMBOPLASTIN TIME 44 SECONDS (22-32)
[2019-12-25 06:48] LABS: ALANINE AMINOTRANSFERASE 8 U/L (12-78); ALBUMIN 2.7 G/DL (3.4-5.0); ALKALINE PHOSPHATASE 40 IU/L (46-116); ANION GAP 11 (8-16); CHLORIDE 98 MMOL/L (99-107); CREATININE 4.55 MG/DL (0.40-0.90); POTASSIUM 4.1 MMOL/L (3.5-5.1); SODIUM 132 MMOL/L (135-145); TOTAL CARBON DIOXIDE 23.3 MMOL/L (24-32); eGFR 10 ML/MIN
[2019-12-25 06:53] LABS: ALBUMIN/GLOBULIN RATIO 0.4 (1.1-1.5); ASPARTATE AMINO TRANSFERASE 22 U/L (10-37); BILIRUBIN,TOTAL 1.9 MG/DL (0.1-1.0); BLOOD UREA NITROGEN 52 MG/DL (7-18); BUN/CREATININE RATIO 11.4 (6.6-38.0); CALCIUM 8.7 MG/DL (8.5-10.1); GLUCOSE 89 MG/DL (70-104); TOTAL PROTEIN 8.8 G/DL (6.4-8.2)
[2019-12-25 07:00] VITALS: BP 86/38
[2019-12-25] MEDS: propranolol 10mg tablet PO SCH (08:00)
[2019-12-25] MEDS ORDERED: methylnaltrexone br 12mg/0.6ml inj***SubQ only SQ SCH (08:00)
[2019-12-25] MEDS: heparin, porcine 5000 units/ml vial SQ SCH (08:00)
[2019-12-25] MEDS: lactobacillus rhamnosus 10,000 MMU CELLS/CAPSULE PO SCH (08:05)
[2019-12-25] MEDS: pantoprazole 40mg Tablet.DR PO SCH (08:05)
[2019-12-25] MEDS: rifaximin 550mg tablet PO SCH (08:05)
[2019-12-25] MEDS: oxcarbazepine 150mg tablet PO SCH (08:05)
[2019-12-25] MEDS: folic acid 1mg tablet PO SCH (08:05)
[2019-12-25] MEDS: levoFLOXACIN 250mg tablet PO SCH (08:05)
[2019-12-25] MEDS: docusate sod 100mg capsule PO SCH (08:05)
[2019-12-25] MEDS: levoTHYROXINE 75mcg tablet PO SCH (08:28)
[2019-12-25] MEDS ORDERED: acetaminophen 325mg tablet PO PRN (10:50)
[2019-12-25 11:00] VITALS: BP 93/40
--- NOTE | 2019-12-25 11:06 | NUR ---
F/u: Pt has been made DNR w/ comfort care. LB 12/10 receiving routine colace and senna. Will continue to monitor. Addendum: 12/25/19 at [address] Amended: Links added.
--- NOTE | 2019-12-25 13:34 | NUR ---
ORDER RECEIVED TO REMOVE TDC FROM RIGHT CHEST NURSE TO BEDSIDE FULLY INTACT TDC REMOVED WITHOUT COMPLICATIONS FLOOR NURSE INFORMED
--- NOTE | 2019-12-25 14:12 | NUR ---
Wound care at bedside to see pt per wound care consult for groin. Upon examination, there is no noted concerns in pt's groin area. The slightest moisture is present but there is no redness, no intertrigo, no odor, no swelling, and no openings. Recommend just cleansing QSHIFT and PRN, placing pillow case to wick excess moisture. Pt is to go home on comfort care today/.
[2019-12-25 15:00] VITALS: BP 94/34
[2019-12-25] MEDS: morphine 10mg/0.5ml (conc. morphine) oral syringe PO PRN ×2 (15:39→20:25)
[2019-12-25] MEDS ORDERED: midodrine tablet 2.5 MG TABLET PO SCH (16:00)
--- NOTE | 2019-12-25 17:15 | NUR ---
Received a call from [facility] pharmacy. Spoke with pharmacist Willi, stating he does not have the strength that was written. Willi requested that we allow 20 mg/5 ml the unconcentrated strength that will give the exact same dosage. Dr. Hilario. Spoke with Dr. Hilario and he agreed to this. Verbal okayed with Willi.
--- NOTE | 2019-12-25 17:47 | NUR ---
Patient is awaiting arrival of transport team. Family still at bedside. CM, Dr. Hilario and nursing has had multiple conversations with the family regarding her condition. They are aware that there is a possibility that the patient may not make it during transport. All questions answered. Pt. is still awake and periodically answering questions. No significant changes in vital signs at this time. Pt. is going home on comfort care. Awaiting transport.
[2019-12-25 18:00] VITALS: BP 104/45
--- NOTE | 2019-12-25 18:18 | NUR ---
Patient in room PCU 3017. I have received report from Kate VIDAL and had the opportunity to ask questions and assume patient care.
--- NOTE | 2019-12-25 18:35 | NUR ---
Problems reprioritized. Patient report given, questions answered & plan of care reviewed with Radha VIDAL. Family still at bedside, awaiting transportation.
[2019-12-25] MEDS ORDERED: docusate sod 100mg capsule PO SCH (20:00)
[2019-12-25] MEDS ORDERED: sennosides/docusate sodium tablet PO SCH (20:00)
--- NOTE | 2019-12-25 20:28 | NUR ---
Patient leaving at this time with [facility] to be transported home in [place] on comfort care. We have obtained orders for IV Morphine and PIV placement for transport. Also, since [facility] states that they typically do not transport comfort care patient's home they need a plan in case the patient passes en route. They have agree that if the patient passes before the [facility] that they will turn around and bring her back here to arrange for her getting to the mortuary and the Metallurgical Engineering Technician has agree to this in order for them to take her. Patient's children went with her with all of her belongings.
--- NOTE | 2019-12-26 14:25 | NUR ---
Received a call from Karrie Matias stating the patients primary and home health has no information regarding the patients care. They stated that the discharge packet didn't make it home. Karrie is requesting communication with the primary physician Balwinder at [phone], it was explained that the information was sent with [facility] and also it was faxed over with conformation of receipt per the pillowcase folder Luz. Information was referred over to [facility] Case management and she stated she would follow up. Notified Karrie.
[2019-12-27] MEDS ORDERED: VANCOMYCIN LEVEL IV ONE (15:30)
== END 2019-12-25 20:30 | disposition home health service (06) | DRG 425 ==
LOC: ER 10:04 → ED HOLD 11:29 → PCU 3S 15:15
PROVIDERS: ADMIT Internal Medicine Critical Care Medicine; ATTEND Internal Medicine Critical Care Medicine
PROC: 0JH63XZ Insertion of Tunneled Vascular Access Device into Chest Subcutaneous Tissue and Fascia, Percutaneous Approach (ICD-10-PCS; principal; 2019-12-21)
PROC: 02HV33Z Insertion of Infusion Device into Superior Vena Cava, Percutaneous Approach (ICD-10-PCS; 2019-12-21)
PROC: B5181ZA Fluoroscopy of Superior Vena Cava using Low Osmolar Contrast, Guidance (ICD-10-PCS; 2019-12-21)
PROC: B548ZZA Ultrasonography of Superior Vena Cava, Guidance (ICD-10-PCS; 2019-12-21)
PROC: 5A09357 Assistance with Respiratory Ventilation, Less than 24 Consecutive Hours, Continuous Positive Airway Pressure (ICD-10-PCS; 2019-12-21)
PROC: 30233N1 Transfusion of Nonautologous Red Blood Cells into Peripheral Vein, Percutaneous Approach (ICD-10-PCS; 2019-12-21)
PROC: 5A1D70Z Performance of Urinary Filtration, Intermittent, Less than 6 Hours Per Day (ICD-10-PCS; 2019-12-21)
PROC: 5A1D70Z Performance of Urinary Filtration, Intermittent, Less than 6 Hours Per Day (ICD-10-PCS; 2019-12-23)
PROC: 0JPV3XZ Removal of Tunneled Vascular Access Device from Upper Extremity Subcutaneous Tissue and Fascia, Percutaneous Approach (ICD-10-PCS; 2019-12-25)
DX: E87.70 Fluid overload, unspecified (principal); E11.22 Type 2 diabetes mellitus with diabetic chronic kidney disease; G93.41 Metabolic encephalopathy; J90 Pleural effusion, not elsewhere classified; I08.3 Combined rheumatic disorders of mitral, aortic and tricuspid valves; K76.7 Hepatorenal syndrome; N17.9 Acute kidney failure, unspecified; D64.9 Anemia, unspecified; N18.6 End stage renal disease; Z51.5 Encounter for palliative care; E66.01 Morbid (severe) obesity due to excess calories; R57.0 Cardiogenic shock; R62.7 Adult failure to thrive; Z66 Do not resuscitate; B19.20 Unspecified viral hepatitis C without hepatic coma; K72.90 Hepatic failure, unspecified without coma; M19.90 Unspecified osteoarthritis, unspecified site; Z99.2 Dependence on renal dialysis; Z88.8 Allergy status to other drugs, medicaments and biological substances; Z68.43 Body mass index [BMI] 50.0-59.9, adult
CPT/HCPCS: 36415; 36430; 36558; 36589; 70450; 71045; 71250; 76937; 77001; 80053; 81001; 82140; 82150; 82533; 82570; 82948; 83605; 83735; 83880; 84100; 84145; 84156; 84300; 84439; 84443; 84560; 85025; 85027; 85610; 85730; 86160; 86870; 86880; 86885; 86900; 86901; 86902; 86922; 87040; 87081; 87340; 90935; 93005; 93306; 94640; 94760; 99285; C1750; C1769; C1894; G0378; J1200; J1644; J2405; J3010; J3370; J7040; P9016; Q4081